=== PATIENT | male | born 1970 | race African-American/Black ===

== ENCOUNTER 2024-10-18 11:34 | Observation (INO) ==
--- NOTE | 2024-10-18 11:42 | Emergency Department Note ---
Impression & Plan Chest pain ED Provider Note CHIEF COMPLAINT: Chest pain HISTORY OF PRESENTING ILLNESS: The patient is a 54-year-old inmate who arrives via EMS for evaluation of chest pain. Patient received p.o. nitro, and 324 of aspirin prior to arrival, with no resolution of symptoms. Patient is an inmate at the [facility], history of STEMI in July of this year, with diagnosis of nonsustained V. tach, and aortic regurgitation. Patient underwent PCI with stenting, of the right coronary artery. Patient is on antiplatelet therapy. Patient had left-sided chest pain, with no radiation. Patient reports slight shortness of breath at the time of chest pain. He reports he was sitting when the chest pain occurred. He reports the sensation as a pressure. He states the symptoms feel like his previous [place]. Patient reports he has had a recent illness, with persistent cough. He reports no fever. He is well- appearing otherwise, with stable vital signs. REVIEW OF SYSTEMS: See HPI for pertinent positives and pertinent negatives. ALLERGIES: See below MEDICATIONS: See below PAST MEDICAL HISTORY: See below PHYSICAL EXAM: VITALS: Vitals are noted on the nurse's note and reviewed by myself. Vital signs stable. GENERAL: 54-year-old male, in no acute distress, nondiaphoretic, well-developed well-nourished. SKIN: The skin was without rashes, erythema, edema, or bruising. HEAD: Normocephalic atraumatic. NECK: Supple without nuchal rigidity. Cervical spine is nontender. No JVD. HEART: Regular rate and rhythm without murmurs gallops or rubs. LUNGS: Clear to auscultation bilaterally without wheezes, rales or rhonchi. No retractions or accessory muscle use. ABDOMEN: Positive bowel sounds x 4. Soft, nontender, without masses or organomegaly. Mora sign negative. No guarding or rebound tenderness. MUSCULOSKELETAL: No muscle atrophy, erythema, or edema noted. Normal gait. Strength 5/5 throughout. NEURO: Patient was alert and oriented to person place and time. No focal neurological deficits. DIFFERENTIAL DIAGNOSIS: Cardiac ischemia, aortic dissection, pulmonary embolism, pneumothorax, pneumonia, pericarditis, myocarditis, esophageal rupture, GERD, cholecystitis, pancreatitis, musculoskeletal, as well as other pathologies. ED COURSE AND MEDICAL DECISION MAKING: MONITOR: Continuous teletypesetter monitor: Order was placed for continuous teletypesetter monitor. Patient was placed on the teletypesetter monitor and continuous pulse ox. Patient was noted to be in normal sinus rhythm at an initial rate of 56 bpm per my interpretation. EKG: EKG was interpreted by myself as sinus bradycardia, with nonspecific ST and T wave abnormality, rate 55 bpm, no signs of ischemia present. EKG from July [address] elevation in inferior leads. INTERPRETATION OF LABS: I interpreted the labs with full lab results as below in the lab section of this note. Pertinent lab results discussed in the MDM section below. INTERPRETATION OF IMAGING: Imaging studies were interpreted by myself and read by radiology as per the imaging section of this note. CHRONIC MEDICAL/SOCIAL CONDITIONS AFFECTING CARE: Prediabetes, aortic regurgitation, previous STEMI, with stenting. MDM SUMMARY: The patient is a pleasant, 54-year-old male who arrives to the emergency department for evaluation of the above-stated complaint. Saline lock was established, cardiac workup was obtained. Lab work shows no leukocytosis, no anemia. CMP is unremarkable. Coags within normal limits. D-dimer negative. Initial troponin negative, with 2-hour repeat negative. Chest x-ray per my interpretation shows no acute cardiopulmonary process. EKG interpreted as above. Patient heart score 4. Based on heart score, with negative workup today, patient should be admitted to the hospital for observation. Case management facilitated contact with the [facility] hospitalist group. Patient will be evaluated by Dr Mcgee for admission to observation. Please refer to their documentation for further patient workup and care. DIAGNOSIS: Chest pain The chart was completed utilizing [employer] Speech voice recognition software. Grammatical errors, random word insertions, pronoun errors, and incomplete sentences are an occasional consequence of this system due to software limitations, ambient noise, and hardware issues. Any formal questions or concerns about the content, text, or information contained within the body of this dictation should be directly addressed to the provider for clarification. TREATMENT PLAN/DISCHARGE INSTRUCTIONS: Admit to hospitalist service for observation Past Med/Surg History Problem List (Updated 10/18/24 @ 15:35 by ABDIEL Cotto) Chest pain (Acute) Prediabetes Aortic regurgitation Depression Medical History Nonsustained ventricular tachycardia Chest pain STEMI (ST elevation myocardial infarction) Glaucoma Tinea versicolor Obsessive compulsive disorder Generalized anxiety disorder Family History Mother , age 69 Myocardial infarction Social History Smoking Status: Never smoker Tobacco Type: E-cigarettes / Vaping Cigarettes Per Day: 2 every 3 days; Hx Alcohol Use: No Hx Substance Use: No Preferred Language: Thai Communication Ability: Effective Clinical Research Spec Required: No Beliefs That Will Affect Care: None Current Living Situation: Other Current Living Situation Comment: [facility] Feels Safe at Home: Yes Assistive Devices: None Allergies Allergies Allergy/AdvReac Type Severity Reaction Status Date / Time sulfamethoxazole Allergy Intermediate Verified 10/18/24 12:22 [From Bactrim] trimethoprim [From Bactrim] Allergy Intermediate Verified 10/18/24 12:22 aspirin Allergy Unknown Unknown - Unverified 10/18/24 12:22 On file w/ [facility] cephalexin [From Keflex] Allergy Unknown Verified 10/18/24 12:22 chlorpromazine Allergy Unknown Verified 10/18/24 12:22 ibuprofen Allergy Unknown Verified 07/16/24 15:52 lithium Allergy Unknown Verified 10/18/24 12:22 risperidone [From Risperdal] Allergy Unknown Verified 10/18/24 12:22 Home Meds Home Medications Medication Instructions Recorded Confirmed celecoxib 200 mg capsule 200 mg PO BID 07/16/24 10/18/24 dorzolamide 2 % eye drops 1 drp ophthalmic (eye) BID 07/16/24 10/18/24 latanoprost 0.005 % eye drops 1 drp ophthalmic (eye) HS 07/16/24 10/18/24 mirtazapine 45 mg tablet 45 mg PO HS 07/16/24 10/18/24 timolol 0.5 % eye drops 1 drp ophthalmic (eye) QAM 07/16/24 10/18/24 atorvastatin 80 mg tablet 80 mg PO DAILY 10/18/24 10/18/24 lisinopril 5 mg tablet 5 mg PO DAILY 10/18/24 10/18/24 metoprolol succinate 25 mg 25 mg PO HS 10/18/24 10/18/24 tablet,extended release 24 hr tramadol 50 mg tablet 100 mg PO TID 10/18/24 10/18/24 Previous Rx's Medication Instructions Recorded aspirin 81 mg tablet,delayed 81 mg PO QAM #1 tab 07/18/24 release ticagrelor 90 mg tablet (Brilinta) 90 mg PO BID #1 tab 07/18/24 Results & Data (ED) Vital Signs Vital Signs - 24 hr 10/18/24 11:45 10/18/24 11:45 10/18/24 11:45 Temperature 36.9 C Temperature Source Oral Pulse Rate 56 L Pulse Rate [Apical] Respiratory Rate 19 Respiratory Effort / Characteristics Non-Labored Spontaneous Respiratory Depth Normal Blood Pressure 121/81 Blood Pressure [Right Arm] Blood Pressure Mean 94 Blood Pressure Mean [Right Arm] Blood Pressure Position Semi-fowlers Blood Pressure Position [Right Arm] Pulse Oximetry 98 98 98 Oxygen Delivery Method Room Air Room Air Room Air Sepsis Recent Fever Within 48 Hours No Sepsis New/Unexplained Change in Mental Status N/A Sepsis Action Taken by Nursing No Action Required 10/18/24 12:05 10/18/24 12:05 10/18/24 12:53 Temperature Temperature Source Pulse Rate 58 L Pulse Rate [Apical] Respiratory Rate Respiratory Effort / Characteristics Respiratory Depth Blood Pressure Blood Pressure [Right Arm] Blood Pressure Mean Blood Pressure Mean [Right Arm] Blood Pressure Position Blood Pressure Position [Right Arm] Pulse Oximetry 98 98 Oxygen Delivery Method Room Air Room Air Sepsis Recent Fever Within 48 Hours Sepsis New/Unexplained Change in Mental Status Sepsis Action Taken by Nursing 10/18/24 13:30 10/18/24 15:10 10/18/24 15:10 Temperature Temperature Source Pulse Rate 68 Pulse Rate [Apical] 60 68 Respiratory Rate 17 16 16 Respiratory Effort / Characteristics Non-Labored Spontaneous Non-Labored Spontaneous Respiratory Depth Normal Normal Blood Pressure Blood Pressure [Right Arm] 117/84 119/81 Blood Pressure Mean Blood Pressure Mean [Right Arm] 95 93 Blood Pressure Position Blood Pressure Position [Right Arm] Semi-fowlers Pulse Oximetry 99 98 98 Oxygen Delivery Method Room Air Room Air Room Air Sepsis Recent Fever Within 48 Hours Sepsis New/Unexplained Change in Mental Status Sepsis Action Taken by Prison Medications Current Medication List: was personally reviewed by me Laboratory Data Attestation: I reviewed the patient's lab results. 10/18/24 11:53 10/18/24 11:53 Lab Results 10/18/24 10/18/24 10/18/24 Range/Units 11:53 14:34 14:40 WBC 4.58 L (4.8-10.8) K/ul RBC 4.80 (4.70-6.10) M/uL Hgb 14.8 (14.0-18.0) g/dl Hct 43.6 (42.0-52.0) % MCV 90.8 (80.0-100.0) fL MCH 30.8 (25.0-34.0) pg MCHC 33.9 (32.0-36.0) g/dL RDW Std Deviation 43.9 (36.4-46.3) fL RDW Coeff of Mylene 13.2 (11.5-14.5) % Plt Count 240 (130-400) K/uL MPV 9.8 (9.4-12.4) fL Immature Gran % (Auto) 0.4 % Neut % (Auto) 56.4 % Lymph % (Auto) 32.5 % Hettinger % (Auto) 9.2 % Eos % (Auto) 1.3 % Baso % (Auto) 0.2 % Neut # (Auto) 2.58 (1.40-6.50) K/uL Lymph # (Auto) 1.49 (1.20-3.40) K/uL [place]tinger # (Auto) 0.42 (0.11-0.59) K/uL Eos # (Auto) 0.06 (0.00-0.50) K/uL Baso # (Auto) 0.01 (0.00-0.20) K/uL Immature Gran # (Auto) 0.02 (0.01-0.20) K/uL PT 11.1 (9.0-12.0) Seconds INR 1.0 (0.9-1.1) APTT 25 (21-31) Seconds PTT Ratio 0.9 D-Dimer < 190 (0-500) ug/L FEU Sodium 140 (136-145) mmol/L Potassium 4.5 (3.5-5.1) mmol/L Chloride 107 (98-107) mmol/L Carbon Dioxide 30 (21-32) mmol/L Anion Gap 3 (3-11) BUN 13 (6-23) mg/dl Creatinine 0.90 (0.6-1.4) mg/dl Est Cr Clr Drug Dosing 101.8 ml/min eGFR 100.86 BUN/Creatinine Ratio 14.4 (10-20) Glucose 96 (70-99(Fasting)) mg/dl Calcium 9.7 (8.6-10.3) mg/dl Total Bilirubin 0.7 (0.2-1.0) mg/dl AST 30 (13-39) U/L ALT 31 (7-52) U/L Alkaline Phosphatase 68 (34-104) U/L Troponin I High Sens 5.3 4.5 (0-20) pg/ml Total Protein 7.6 (6.0-8.3) gm/dl Albumin 4.2 (3.4-5.0) gm/dl Globulin 3.4 (2.5-4.0) gm/dl Albumin/Globulin Ratio 1.2 (0.9-2) Lipase 33 (11-82) U/L Urine Color Yellow Urine Appearance Clear (Clear) Urine pH 7.5 (4.5-7.5) Ur Specific [employer] 1.020 (1.000-1.030) Urine Protein Negative (Negative) Urine Glucose (UA) Negative (Negative) Urine Ketones Negative (Negative) Urine Blood Trace-intact H (Negative) Urine Nitrite Negative (Negative) Urine Bilirubin Negative (Negative) Urine Urobilinogen Negative (Negative) Ur Leukocyte Esterase Negative (Negative) Urine WBC (Auto) 0-5 (0-5) /hpf Urine RBC (Auto) 0-2 (0-2) /hpf U Hyaline Cast (Auto) 0-2 (0-2) /lpf U Epithel Cells (Auto) 0-2 (0-2) /hpf Urine Bacteria (Auto) None Seen (None Seen) Urine Comment Imaging Data Attestation: I personally reviewed and interpreted this imaging study as follows: Radiologist's Impression: Chest X-Ray 10/18/24 11:48 XR chest 1V portable CLINICAL HISTORY: Chest pain, nonspecific COMPARISON STUDY: 07/16/2024 FINDINGS: Heart size and pulmonary vasculature are normal. No consolidation or pleural effusion. No pneumothorax. IMPRESSION: No acute findings. ACT 112: Negative or not required by law. Electronically signed by: Wale Kaba M.D. 10/18/2024 12:22 PM Discharge Plan Visit Data Chief Complaint: Chest Pain Stated Complaint: CHEST PAIN ED Provider: Xochitl Warren ED Midlevel Provider: Rani Garcia Discharge Problem: Chest pain Patient Disposition: Admitted As Inpatient Condition: Fair Forms Stand Alone Forms: My [facility] [employer] Prescriptions Prescriptions: No Action atorvastatin 80 mg Tablet 80 mg PO DAILY tramadol 50 mg Tablet 100 mg PO TID lisinopril 5 mg tablet 5 mg PO DAILY metoprolol succinate 25 mg tablet extended release 24 hr 25 mg PO HS celecoxib 200 mg Capsule 200 mg PO BID latanoprost 0.005 % Drops 1 drp ophthalmic (eye) HS timolol 0.5 % Drops 1 drp OPHTHALMIC (EYE) QAM mirtazapine 45 mg Tablet 45 mg PO HS dorzolamide 2 % Drops 1 drp OPHTHALMIC (EYE) BID aspirin 81 mg Tablet,Delayed Release (Dr/Ec) 81 mg PO QAM Qty: 1 0RF ticagrelor [Brilinta] 90 mg Tablet 90 mg PO BID Qty: 1 0RF Referrals Referrals: Lindsey BALDERAS [Primary Care Provider] - Risk - HEART Scoring HEART Score for Major Cardiac Events History: Moderately Suspicious EKG: Normal Age: 45-64 Years of Age Risk Factors: >2 Risk Factors Initial Troponin: Normal Limit Total Points: 4 Risk Level: Moderate Risk for Major Adverse Cardiac Event HEART Score Interpretation: Score interpretation (as per derivation study): HEART Adverse Cardiac Score Event Risk Management 0-3 0.9-1.7% In the HEART Score study, these patients were discharged. 4-6 12-16.6% In the HEART Score study, these patients were admitted to the hospital. 7-10 50-65% In the HEART Score study, these patients were candidates for early invasive measurements. Original Source: 1. Felipe AJ, Vinny BE, Morena ABDIFATAH. Chest pain in the emergency room: value of the HEART score. Neth Heart J. 2008; 16(6):191-6.
[2024-10-18 12:23] LABS: Hematocrit (blood only) 43.6 % (42.0-52.0); Hemoglobin 14.8 g/dl (14.0-18.0); Immature Granulocytes # (auto) 0.02 K/uL (0.01-0.20); Immature Granulocytes % (auto) 0.4 %; Mean Corpuscular Hemoglobin 30.8 pg (25.0-34.0); Mean Corpuscular Volume 90.8 fL (80.0-100.0); Platelet Count 240 K/uL (130-400); RDW Standard Deviation 43.9 fL (36.4-46.3); Red Blood Count 4.80 M/uL (4.70-6.10); White Blood Count 4.58 K/ul (4.8-10.8)
--- NOTE | 2024-10-18 12:23 | XRay Report ---
XR chest 1V portable CLINICAL HISTORY: Chest pain, nonspecific COMPARISON STUDY: 07/16/2024 FINDINGS: Heart size and pulmonary vasculature are normal. No consolidation or pleural effusion. No p neumothorax. IMPRESSION: No acute findings. ACT 112: Negative or not required by law. Electronically signed by: Wale Kaba M.D. 10/18/2024 12:22 PM
[2024-10-18 12:40] LABS: Alanine Aminotransferase 31.0 U/L (7-52); Albumin Globulin Ratio 1.2 (0.9-2); Alkaline Phosphatase 68.0 U/L (34-104); Anion Gap 3.0 (3-11); Bilirubin,Total 0.7 mg/dl (0.2-1.0); Blood Urea Nitrogen 13.0 mg/dl (6-23); Calcium 9.7 mg/dl (8.6-10.3); Carbon Dioxide 30.0 mmol/L (21-32); Chloride 107.0 mmol/L (98-107); Creatinine Clr Calc Pharmacy 101.8 ml/min; Globulin 3.4 gm/dl (2.5-4.0); Glucose 96.0 mg/dl (70-99(Fasting)); Lipase 33.0 U/L (11-82); Potassium 4.5 mmol/L (3.5-5.1); Sodium 140.0 mmol/L (136-145); Total Protein 7.6 gm/dl (6.0-8.3)
[2024-10-18 12:54] LABS: INR 1.0 (0.9-1.1); Partial Thromboplastin Time 25 Seconds (21-31); Prothrombin Time 11.1 Seconds (9.0-12.0)
--- NOTE | 2024-10-18 12:56 | Electrocardiogram Report ---
Test Reason : Blood Pressure : */* mmHG Vent. Rate : 55 BPM Atrial Rate : 55 BPM P-R Int : 166 ms QRS Dur : 70 ms QT Int : 410 ms P-R-T Axes : 20 63 -1 degrees QTcB Int : 392 ms Sinus bradycardia Nonspecific ST and T wave abnormality Abnormal ECG When compared with ECG of 16-Jul-2024 17:13, Fusion complexes are no longer Present Borderline criteria for Inferior infarct are no longer Present Confirmed by Hair Harrison ([id number]) on 10/18/2024 12:56:27 PM Referred By: Confirmed By: Hair Harrison
[2024-10-18 14:43] LABS: Appearance Urine Clear (Clear); Glucose Urine UA Negative (Negative)
[2024-10-18 14:53] LABS: Bacteria Urine Automated None Seen (None Seen); Cast Urine Automated 0-2 /lpf (0-2); Epithelial Cell Urine Auto 0-2 /hpf (0-2); RBC Urine Automated 0-2 /hpf (0-2); WBC Urine Automated 0-5 /hpf (0-5)
--- NOTE | 2024-10-18 15:31 | History & Physical Report ---
Date of Service October 18, 2024 Assessment & Plan (1) Chest pain: (2) History of ST elevation myocardial infarction (STEMI): (3) History of coronary artery stent placement: Plan Patient is a 54-year-old M with PMH significant for STEMI in July 2024 s/p PCI with HERNANDO x 1 to the mid RCA on DAPT with Brilinta and ASA, history of nonsustained ventricular tachycardia, mild aortic regurgitation, prediabetes and depression who presented to the ED via EMS from [facility] with complaint of chest pain. Chest pain r/o History of STEMI in July 2024 s/p PCI with HERNANDO x 1 to the mid RCA Chest pain resolved at time of my evaluation s/p SL nitro x 1 and 324mg ASA (received en route to ED) EKG today reviewed: sinus bradycardia [HR 55bpm], nonspecific ST and T wave abnormalities Trop x 2 negative Will continue to trend trop overnight Q6H x 3, telemetry monitoring Appreciate routine cards consult (pt previously seen by [place] cards so consulting their service) Check updated TTE Continue statin, DAPT Hold lisinopril for now as BP on softer side -Pt c/o chronic, dry cough x past several months -Possibly related to lisinopril, could consider transition to ARB Continue BB Depression Continue Remeron Chronic L hand pain Pt states this is from a prior injury Admits to taking Celebrex daily for L hand pain -Hold for now -Encouraged pt to consider discontinuing Celebrex 2/2 risk of esophageal irritation, renal impairment given concomitant ASA use DVT Prophylaxis: SCDs/TEDs, SQ heparin Disposition: Observation in med/telemetry Patient seen in collaboration with Dr. Mcgee. Please see addendum. I spent a total of 48 minutes coordinating, documenting, and providing care for this patient excluding time spent in the performance of separately billed services or time spent by another provider/QHP. This included personally reviewing all current laboratories and imaging studies, medical reconciliation, outpatient chart review and discussion with specialists. This chart was completed in part utilizing Speech Voice Recognition Software. Grammatical errors, random word insertions, pronoun errors, and incomplete sentences are an occasional consequence of this system due to software limitations, ambient noise, and hardware issues. Any formal questions or concerns about the content, text, or information contained within the body of this dictation should be directly addressed to the provider for clarification. History of Present Illness Chief Complaint: Chest pain Primary Care Provider: [facility] Patient is a 54-year-old M with PMH significant for STEMI in July 2024 s/p PCI with HERNANDO x 1 to the mid RCA on DAPT with Brilinta and ASA, history of nonsustained ventricular tachycardia, mild aortic regurgitation, prediabetes and depression who presented to the ED via EMS from [facility] with complaint of chest pain. History obtained from the patient, discussion with ED provider and associated chart review. Admits to sudden onset of chest pain, primarily described as a pressure-like sensation, earlier today while sitting in his cell. Pain primarily located in the left chest wall - more so underneath the left breast - without any radiation. Did experience some slight SOB and transient palpitations with the chest pain. Symptoms felt similar to those which he experienced when he had his STEMI back in July. S/p 324mg ASA and SL nitroglycerin x 1 en route to ED. Chest pain and SOB resolved at the time of my evaluation. EKG today reviewed. Sinus bradycardia with HR 55bpm, nonspecific ST and T wave abnormalities. Had been feeling otherwise well up until this AM. Does endorse a chronic, dry cough which is been ongoing for the past several months. No reported fevers, chills or myalgias. Denies any recent sick contacts. Has been compliant with his medications. Allergies Allergy/AdvReac Type Severity Reaction Status Date / Time sulfamethoxazole Allergy Intermediate Verified 10/18/24 12:22 [From Bactrim] trimethoprim [From Bactrim] Allergy Intermediate Verified 10/18/24 12:22 aspirin Allergy Unknown Unknown - Unverified 10/18/24 12:22 On file w/ [facility] cephalexin [From Keflex] Allergy Unknown Verified 10/18/24 12:22 chlorpromazine Allergy Unknown Verified 10/18/24 12:22 ibuprofen Allergy Unknown Verified 07/16/24 15:52 lithium Allergy Unknown Verified 10/18/24 12:22 risperidone [From Risperdal] Allergy Unknown Verified 10/18/24 12:22 Home Medications Medication Instructions Recorded Confirmed Type celecoxib 200 mg capsule 200 mg PO BID 07/16/24 10/18/24 History dorzolamide 2 % eye drops 1 drp ophthalmic (eye) BID 07/16/24 10/18/24 History latanoprost 0.005 % eye drops 1 drp ophthalmic (eye) HS 07/16/24 10/18/24 History mirtazapine 45 mg tablet 45 mg PO HS 07/16/24 10/18/24 History timolol 0.5 % eye drops 1 drp ophthalmic (eye) QAM 07/16/24 10/18/24 History aspirin 81 mg tablet,delayed 81 mg PO QAM #1 tab 07/18/24 10/18/24 Rx release ticagrelor 90 mg tablet (Brilinta) 90 mg PO BID #1 tab 07/18/24 10/18/24 Rx atorvastatin 80 mg tablet 80 mg PO DAILY 10/18/24 10/18/24 History lisinopril 5 mg tablet 5 mg PO DAILY 10/18/24 10/18/24 History metoprolol succinate 25 mg 25 mg PO HS 10/18/24 10/18/24 History tablet,extended release 24 hr tramadol 50 mg tablet 100 mg PO TID 10/18/24 10/18/24 History Past Med/Surg History Problem List (Updated 10/18/24 @ 16:29 by Lakia Fisher PA-C) History of coronary artery stent placement History of ST elevation myocardial infarction (STEMI) Chest pain (Acute) Prediabetes Aortic regurgitation Depression Medical History Nonsustained ventricular tachycardia Chest pain STEMI (ST elevation myocardial infarction) Glaucoma Tinea versicolor Obsessive compulsive disorder Generalized anxiety disorder Family History Mother , age 69 Myocardial infarction Social History Smoking Status: Never smoker Tobacco Type: E-cigarettes / Vaping Cigarettes Per Day: 2 every 3 days; Hx Alcohol Use: No Hx Substance Use: No Preferred Language: Amharic Communication Ability: Effective Medical Lab Specialist Required: No Beliefs That Will Affect Care: None Current Living Situation: Other Current Living Situation Comment: [facility]thews Feels Safe at Home: Yes Assistive Devices: None Review of Systems Review of Systems: At least ten systems reviewed and negative, except as noted in the HPI. Physical Exam Physical Exam: General: WD/WN, NAD, sitting up in bed, A&Ox3, pleasant, conversing appropriately, 2 [employer] [place] guards at bedside HEENT: Normocephalic, atraumatic, conjunctivae normal, moist mucous membranes Respiratory: Normal respiratory effort, CTAB Cardiovascular: RRR, normal peripheral pulses, no BLE edema, no reproducible chest wall tenderness Abdomen/GI: Normal bowel sounds, soft, nontender to palpation in all quadrants Extremities/MSK: No cyanosis or clubbing, extremities motor strength intact, actively moves all extremities Neurologic: No overt focal deficits, CN's II-XI not formally tested but appear grossly intact bilaterally Results & Data Results & Data Vital Signs (Past 12 Hours) Vital Signs Temp Pulse Pulse Resp BP BP Pulse Ox 10/18/24 15:10 68 16 98 10/18/24 15:10 68 16 119/81 98 10/18/24 13:30 60 17 117/84 99 10/18/24 12:53 58 L 10/18/24 12:05 98 10/18/24 12:05 98 10/18/24 11:45 98 10/18/24 11:45 98 10/18/24 11:45 36.9 C 56 L 19 121/81 98 O2 Del Method 10/18/24 15:10 Room Air 10/18/24 15:10 Room Air 10/18/24 13:30 Room Air 10/18/24 12:53 10/18/24 12:05 Room Air 10/18/24 12:05 Room Air 10/18/24 11:45 Room Air 10/18/24 11:45 Room Air 10/18/24 11:45 Room Air Laboratory Results Short CBC 10/18/24 Range/Units 11:53 WBC 4.58 L (4.8-10.8) K/ul Hgb 14.8 (14.0-18.0) g/dl Hct 43.6 (42.0-52.0) % Plt Count 240 (130-400) K/uL BMP 10/18/24 11:53 Sodium 140 Potassium 4.5 Chloride 107 Carbon Dioxide 30 BUN 13 Creatinine 0.90 Glucose 96 Calcium 9.7 Liver Function 10/18/24 Range/Units 11:53 Total Bilirubin 0.7 (0.2-1.0) mg/dl AST 30 (13-39) U/L ALT 31 (7-52) U/L Alkaline Phosphatase 68 (34-104) U/L Albumin 4.2 (3.4-5.0) gm/dl Urine 10/18/24 Range/Units 14:34 Urine Color Yellow Urine Appearance Clear (Clear) Urine pH 7.5 (4.5-7.5) Ur Specific [place] 1.020 (1.000-1.030) Urine Protein Negative (Negative) Urine Glucose (UA) Negative (Negative) Diagnostic Findings Chest X-Ray 10/18/24 11:48 XR chest 1V portable CLINICAL HISTORY: Chest pain, nonspecific COMPARISON STUDY: 07/16/2024 FINDINGS: Heart size and pulmonary vasculature are normal. No consolidation or pleural effusion. No pneumothorax. IMPRESSION: No acute findings. ACT 112: Negative or not required by law. Electronically signed by: Wale Kaba M.D. 10/18/2024 12:22 PM Code Status & VTE Plan Code Status FULL CODE - As per direct d/w the pt in the ED. Supervising Physician Co-Signing Physician Notes Attending addendum: The patient was seen and examined in emergency room He was brought in with chest pain in the precordial area associated with cough lasted for about an hour Minimal shortness of breath but no radiation and no nausea vomiting or palpitations He has been feeling much better since in the emergency room On examination Lying in bed without any acute distress Hemodynamically stable Chestclear to auscultate bilaterally HeartS1-S2, regular Abdomenbenign Extremitiesno edema His labs, imaging studies and EKGs reviewed Presented with chest pain with recent history of NSTEMI in July status post PCI with HERNANDO in mid RCA No evidence of increasing troponin and/or EKG changes suggestive of ACS Follow-up troponin in telemetry unit with serial troponins and EKG Continue his current medications including aspirin and Brilinta and cardiology evaluation Other significant medical conditions remained stable Agree with assessment plan as outlined above by lakia Jones PA-C and take the full responsibility of care in the hospital Dr Angel Mcgee (1) Chest pain Chest pain type: unspecified Qualified Code(s): R07.9 - Chest pain, unspecified
[2024-10-18] MEDS ORDERED: MAGNESIUM HYDROXIDE SUSP 30 ML UDC PO PRN (17:15)
[2024-10-18] MEDS ORDERED: ACETAMINOPHEN 325 MG TAB PO PRN (17:15)
[2024-10-18] MEDS ORDERED: ONDANSETRON INJ 2 MG/ML 2 ML VIAL IV PRN (17:15)
[2024-10-18] MEDS ORDERED: POLYETHYLENE (MIRALAX) 17 GM PACK PO PRN (17:15)
[2024-10-18] MEDS: METOPROLOL SUCC 25MG EXT REL TAB PO SCH (21:14)
[2024-10-18] MEDS: TICAGRELOR 90 MG TAB PO SCH (21:14)
[2024-10-18] MEDS: LATANOPROST 0.005% OP SOLN 2.5 ML BTL OP SCH (21:15)
[2024-10-18] MEDS: DORZOLAMIDE HCL 2% OPH SOLN 10 ML BTL OP SCH (21:15)
[2024-10-18] MEDS: HEPARIN SOD 5,000 UNIT/0.5 ML VIAL SQ SCH (21:15)
[2024-10-18] MEDS: MIRTAZAPINE SOLTAB 15 MG PO SCH (21:16)
[2024-10-19 06:38] LABS: Hematocrit (blood only) 42.2 % (42.0-52.0); Hemoglobin 14.5 g/dl (14.0-18.0); Mean Corpuscular Hemoglobin 30.8 pg (25.0-34.0); Mean Corpuscular Volume 89.6 fL (80.0-100.0); Platelet Count 245 K/uL (130-400); RDW Standard Deviation 43.6 fL (36.4-46.3); Red Blood Count 4.71 M/uL (4.70-6.10); White Blood Count 5.55 K/ul (4.8-10.8)
[2024-10-19 07:03] LABS: Anion Gap 8.0 (3-11); Blood Urea Nitrogen 12.0 mg/dl (6-23); Calcium 9.2 mg/dl (8.6-10.3); Carbon Dioxide 27.0 mmol/L (21-32); Chloride 106.0 mmol/L (98-107); Creatinine Clr Calc Pharmacy 94.4 ml/min; Glucose 92.0 mg/dl (70-99(Fasting)); Magnesium 2.0 mg/dl (1.7-2.4); Potassium 3.9 mmol/L (3.5-5.1); Sodium 141.0 mmol/L (136-145)
[2024-10-19 07:52] VITALS: RESP 16; TEMP 98.2
[2024-10-19] MEDS: TIMOLOL MALEATE 0.5% OP SOLN 5 ML BTL OP SCH (07:53)
[2024-10-19] MEDS: ASPIRIN 81 MG ECTAB PO SCH (07:55)
[2024-10-19] MEDS: ATORVASTATIN 40 MG TAB PO SCH (07:55)
[2024-10-19 11:32] VITALS: O2SAT 97
--- NOTE | 2024-10-19 11:43 | Cardiology Consultation ---
Date of Consultation October 19, 2024 Assessment & Plan (1) Chest pain: 2. 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 [place] NSVT 4. Trace aortic regurgitation. Recurrent chest pain yesterday. Initial testing negative for signs of ischemia. Underwent exercise stress echo today which was very reassuring and low risk for cardiac events. Feel patients episode of chest pain yesterday likely noncardiac. Intermittent episodes of fluttering in his chest sound like probably PVCs. Reassured that with structurally normal heart these episodes are benign. We discussed avoiding precipitants. If continued symptoms additional ambulatory monitoring and trial of increased beta-coy could be considered. From a cardiac standpoint OK with discharge today. No changes made to current cardiac regimen. Follow-up with cardiology as able. History of Present Illness Attending Physician: Swapnil Mascorro, History of Present Illness Mr. Walton is a 54-year-old man with a history of coronary disease post inferior STEMI 07/2024 treated with single HERNANDO seen today due to recurrent chest pain. He is a prisoner at [facility]. Prior to his [place] no significant cardiac history. No other significant active medical issues. Previously presented with 90 minutes of crushing chest pain. Had occluded mid RCA which responded well to single HERNANDO. No other significant nonculprit CAD. Post [place] his HS TropI peaked at 18,000. Echocardiogram showed preserved LV function. Post PCI course complicated by brief runs of NSVT. Discharged on DAPT with aspirin, ticagrelor. Since discharge states has been doing okay. Has resumed most of his prior activities but does not exercise much. States still more short of breath when going up steps. Has occasional fluttering in his chest associated with shortness of breath and dizziness. These episodes last seconds and can occur anytime. Yesterday was at rest and developed chest heaviness reminiscent of his prior [place] along with some shortness of breath and cough. Symptoms lasted approximately 1 hour. On arrival to ED chest pain-free. HS TropI has been normal x 2. ECG with no new ST changes. Echo unchanged. Allergies Allergy/AdvReac Type Severity Reaction Status Date / Time sulfamethoxazole Allergy Intermediate Verified 10/18/24 12:22 [From Bactrim] trimethoprim [From Bactrim] Allergy Intermediate Verified 10/18/24 12:22 aspirin Allergy Unknown Unknown - Unverified 10/18/24 12:22 On file w/ [facility] cephalexin [From Keflex] Allergy Unknown Verified 10/18/24 12:22 chlorpromazine Allergy Unknown Verified 10/18/24 12:22 ibuprofen Allergy Unknown Verified 07/16/24 15:52 lithium Allergy Unknown Verified 10/18/24 12:22 risperidone [From Risperdal] Allergy Unknown Verified 10/18/24 12:22 Home Medications Medication Instructions Recorded Confirmed Type celecoxib 200 mg capsule 200 mg PO BID 07/16/24 10/18/24 History dorzolamide 2 % eye drops 1 drp ophthalmic (eye) BID 07/16/24 10/18/24 History latanoprost 0.005 % eye drops 1 drp ophthalmic (eye) HS 07/16/24 10/18/24 History mirtazapine 45 mg tablet 45 mg PO HS 07/16/24 10/18/24 History timolol 0.5 % eye drops 1 drp ophthalmic (eye) QAM 07/16/24 10/18/24 History aspirin 81 mg tablet,delayed 81 mg PO QAM #1 tab 07/18/24 10/18/24 Rx release ticagrelor 90 mg tablet (Brilinta) 90 mg PO BID #1 tab 07/18/24 10/18/24 Rx atorvastatin 80 mg tablet 80 mg PO DAILY 10/18/24 10/18/24 History lisinopril 5 mg tablet 5 mg PO DAILY 10/18/24 10/18/24 History metoprolol succinate 25 mg 25 mg PO HS 10/18/24 10/18/24 History tablet,extended release 24 hr tramadol 50 mg tablet 100 mg PO TID 10/18/24 10/18/24 History Patient History Medical History Nonsustained ventricular tachycardia Chest pain STEMI (ST elevation myocardial infarction) Glaucoma Tinea versicolor Obsessive compulsive disorder Generalized anxiety disorder Family History Mother , age 69 Myocardial infarction Social History Smoking Status: Former smoker Tobacco Type: E-cigarettes / Vaping Cigarettes Per Day: 2 every 3 days; Hx Alcohol Use: No (Used to drink "years ago") Hx Substance Use: No Preferred Language: Azeri Communication Ability: Effective Promotional Demonstrator Required: No Beliefs That Will Affect Care: None Current Living Situation: Other Current Living Situation Comment: Alf Other Information That Helps Us Care for You: No Feels Safe at Home: Yes Safety Concerns: Feels Safe At This Time Assistive Devices: None Review of Systems Review of Systems: All systems reviewed & are unremarkable except as noted in HPI & below Physical Exam Physical Exam: General: Comfortable HEENT: Sclerae anicteric Lungs: Clear to auscultation bilaterally, no crackles or wheezes Cardiac: Regular rate and rhythm, no murmurs. Vascular: 2+ radial, DP pulses. No bruits Abdomen: Soft, nontender Extremities: Well perfused, no peripheral edema Neuro: Nonfocal Psych: Alert orient x3, normal affect and mood Results & Data Vital Signs (Past 12 Hours) Vital Signs Temp Pulse Pulse Resp BP Pulse Ox Pulse Ox 10/19/24 11:31 98.2 F 59 L 16 106/72 97 10/19/24 08:09 10/19/24 08:08 95 10/19/24 07:51 98.2 F 65 16 114/75 96 10/19/24 07:17 60 10/19/24 02:41 97.9 F 58 L 18 123/80 98 O2 Del Method O2 Del Method 10/19/24 11:31 Room Air 10/19/24 08:09 Room Air 10/19/24 08:08 Room Air 10/19/24 07:51 Room Air 10/19/24 07:17 10/19/24 02:41 Room Air PG Care Time/CCT Total # of Minutes Spent Total Time Spent with Patient: Total time spent is greater than 50% in coordination of care (as documented) at patient's floor/unit and/or counseling patient: Coding Level of Care Code 98358 IN/OBS CONSULT LVL 4,60M Diagnoses Chest pain, unspecified type R07.9 Chest pain type: unspecified (1) Chest pain Chest pain type: unspecified Qualified Code(s): R07.9 - Chest pain, unspecified
--- NOTE | 2024-10-19 11:53 | XCELERA ---
[id number] \\[id number]
--- NOTE | 2024-10-19 13:05 | XCELERA ---
[id number] \\[id number]
[2024-10-19 13:58] VITALS: BP 128/85
[2024-10-19 14:33] VITALS: PULSE 74
--- NOTE | 2024-10-19 16:49 | Discharge Summary ---
Discharge Summary Date of Service October 19, 2024 Principal Dx & Hospital Course #1 = Principal Diagnosis (1) Chest pain: (2) History of ST elevation myocardial infarction (STEMI): (3) History of coronary artery stent placement: Plan Patient is a 54-year-old M with PMH significant for STEMI in July 2024 s/p PCI with HERNANDO x 1 to the mid RCA on DAPT with Brilinta and ASA, history of nonsustained ventricular tachycardia, mild aortic regurgitation, prediabetes and depression who presented to the ED via EMS from [facility] with complaint of chest pain. Trops and EKG were normal. Stress test low risk. he had no complaints today. cleared for dc by cardio. he is agreeable for discharge. vitals and labs are stable. Chest pain r/o History of STEMI in July 2024 s/p PCI with HERNANDO x 1 to the mid RCA Chest pain resolved at time of my evaluation s/p SL nitro x 1 and 324mg ASA (received en route to ED) EKG today reviewed: sinus bradycardia [HR 55bpm], nonspecific ST and T wave abnormalities Trop x 2 negative Will continue to trend trop overnight Q6H x 3, telemetry monitoring Appreciate routine cards consult (pt previously seen by [place] cards so consulting their service) Continue statin, DAPT Depression Continue Remeron Chronic L hand pain Pt states this is from a prior injury Admits to taking Celebrex daily for L hand pain DVT Prophylaxis: SCDs/TEDs, SQ heparin Disposition: Observation in med/telemetry I spent a total of 36 minutes coordinating, documenting, and providing care for this patient excluding time spent in the performance of separately billed services. This included personally reviewing all current laboratories and imaging studies, medical reconciliation, outpatient chart review and discussion with specialists Notes For Next Care Provider Medication Changes From Visit none Admission HPI Per Admitting Provider Patient is a 54-year-old M with PMH significant for STEMI in July 2024 s/p PCI with HERNANDO x 1 to the mid RCA on DAPT with Brilinta and ASA, history of nonsu stained ventricular tachycardia, mild aortic regurgitation, prediabetes and depression who presented to the ED via EMS from [facility] with complaint of chest pain. History obtained from the patient, discussion with ED provider and associated chart review. Admits to sudden onset of chest pain, primarily described as a pressure-like sensation, earlier today while sitting in his cell. Pain primarily located in the left chest wall - more so underneath the left breast - without any radiation. Did experience some slight SOB and transient palpitations with the chest pain. Symptoms felt similar to those which he experienced when he had his STEMI back in July. S/p 324mg ASA and SL nitroglycerin x 1 en route to ED. Chest pain and SOB resolved at the time of my evaluation. EKG today reviewed. Sinus bradycardia with HR 55bpm, nonspecific ST and T wave abnormalities. Had been feeling otherwise well up until this AM. Does endorse a chronic, dry cough which is been ongoing for the past several months. No reported fevers, chills or myalgias. Denies any recent sick contacts. Has been compliant with his medications. Updated Medication List Medication Instructions Recorded Confirmed Type celecoxib 200 mg capsule 200 mg PO BID 07/16/24 10/18/24 History dorzolamide 2 % eye drops 1 drp ophthalmic (eye) BID 07/16/24 10/18/24 History latanoprost 0.005 % eye drops 1 drp ophthalmic (eye) HS 07/16/24 10/18/24 History mirtazapine 45 mg tablet 45 mg PO HS 07/16/24 10/18/24 History timolol 0.5 % eye drops 1 drp ophthalmic (eye) QAM 07/16/24 10/18/24 History aspirin 81 mg tablet,delayed 81 mg PO QAM #1 tab 07/18/24 10/18/24 Rx release ticagrelor 90 mg tablet (Brilinta) 90 mg PO BID #1 tab 07/18/24 10/18/24 Rx atorvastatin 80 mg tablet 80 mg PO DAILY 10/18/24 10/18/24 History lisinopril 5 mg tablet 5 mg PO DAILY 10/18/24 10/18/24 History metoprolol succinate 25 mg 25 mg PO HS 10/18/24 10/18/24 History tablet,extended release 24 hr tramadol 50 mg tablet 100 mg PO TID 10/18/24 10/18/24 History Hospital Stay Data Consultations 10/18/24 15:31 ED Decision to Admit Stat 10/18/24 17:15 Consult Cardiology Routine Pending Results Patient Have Any Pending Studies at Discharge: No Discharge Instructions Given to Patient (Per Discharging Provider) You were admitted for chest pain. Your stress test was low risk. there was no evidence of heart attack. continue your current medications Total Time Total Time Spent Total Time Spent (In Minutes): 36
== END 2024-10-19 17:40 ==
LOC: 2W 11:34 → ED 11:34 → SUATTDRO 15:41 → 2W 17:03
DX: Z88.1 Allergy status to other antibiotic agents; F17.290 Nicotine dependence, other tobacco product, uncomplicated; Z86.79 Personal history of other diseases of the circulatory system; I25.2 Old myocardial infarction; Z79.82 Long term (current) use of aspirin; I35.1 Nonrheumatic aortic (valve) insufficiency; Z79.899 Other long term (current) drug therapy; Z88.6 Allergy status to analgesic agent; R07.9 Chest pain, unspecified; Z88.2 Allergy status to sulfonamides; Z95.5 Presence of coronary angioplasty implant and graft; Z79.02 Long term (current) use of antithrombotics/antiplatelets